=== PATIENT | male | born 1945 | race African-American/Black ===

== ENCOUNTER 2016-12-15 14:11 | Emergency (ER) | payer OTHER ==
[2016-12-15 14:59] LABS: BASOPHIL 0.1 % (0-2); EOSINOPHIL 0.1 % (0-7); HCT 36.9 % (42.0-52.0); HGB 11.6 g/dl (13.2-18.0); LYMPHOCYTE 1.5 % (15-48); MCH 28.9 pg (25.0-31.0); MCHC 31.4 g/dL (32.0-36.0); MONOCYTE 2.4 % (0-12); MPV 9.8 fL (6.0-9.5); NEUTROPHIL 95.9 % (41-80); PLT 324 K/uL (150-400); RBC 4.01 M/uL (4.70-6.00); RDW 14.9 % (11.5-14.0); WBC 19.3 K/uL (4.0-10.5)
[2016-12-15 15:00] LABS: INR 1.01 (0.9-1.2); PROTHROMBIN TIME 12.9 SECONDS (11.7-14.0)
[2016-12-15 15:04] LABS: CREATININE 2.1 mg/dL (0.7-1.2); POTASSIUM 4.6 mmol/L (3.5-5.1)
[2016-12-15 15:44] LABS: AMPHETAMINES NEGATIVE (NEGATIVE); BARBITURATES NEGATIVE (NEGATIVE); BENZODIAZEPINES NEGATIVE (NEGATIVE); COCAINE NEGATIVE (NEGATIVE); MARIJUANA (THC) POSITIVE (NEGATIVE); METHADONE NEGATIVE (NEGATIVE); TRICYCLIC ANTIDEPRESSANT NEGATIVE (NEGATIVE)
== END 2016-12-15 18:52 | disposition home or self-care (01) ==
LOC: FER 14:11
PROVIDERS: Emergency Medicine
DX: I20.8 Other forms of angina pectoris (principal); I11.9 Hypertensive heart disease without heart failure; I25.2 Old myocardial infarction; J44.9 Chronic obstructive pulmonary disease, unspecified; Z87.891 Personal history of nicotine dependence; Z99.81 Dependence on supplemental oxygen
CPT/HCPCS: 36415; 71020; 80048; 80305; 84484; 85025; 85610; 93005

== ENCOUNTER 2020-07-29 12:59 | Inpatient (IN) | payer MEDICARE, OTHER ==
[~2020-07-29 12:59] MED LIST: ADALAT CC90 MG PO; ASPIRIN EC81 MG PO; BUMEX1 MG PO; COREG25 MG PO; IMDUR 30MG TABL30 MG PO; ISOSORBIDE MONO60 MG PO; LIPITOR80 MG PO; NEURONTIN300 M1 PO; NEURONTIN300 MG PO; NITROQUIK SL0.4 MG SL; PROTONIX 40MG T40 MG PO; ROCALTROL 0.0.25 MCG PO; SENNA LAX8.6 MG PO; SPIRIVA RESPIMAT4 G1 INH; SYMBICORT 80-10.2 GM INH; VENTOLIN HFA IN18 GM INH
[2020-07-29 14:23] LABS: INR 1.57 (0.9-1.2); PROTHROMBIN TIME 17.8 SECONDS (11.4-13.6)
[2020-07-29 14:31] LABS: ALBUMIN 2.9 g/dL (3.4-5.0); BILIRUBIN - TOTAL 0.2 mg/dL (0.2-1.0); BUN/CREAT RATIO (CALC) 6.6 RATIO; CREATININE 6.69 mg/dL (0.67-1.17); GLOBULIN (CALCULATION) 4.1 g/dL; POTASSIUM 3.9 mmol/L (3.5-5.1)
[2020-07-29 14:49] LABS: BASOPHIL 0.3 % (0-2); EOSINOPHIL 0.7 % (0-7); HCT 28.2 % (42.0-52.0); HGB 8.2 g/dl (13.2-18.0); LYMPHOCYTE 2.3 % (15-48); MCH 30.3 pg (25.0-31.0); MCHC 29.1 g/dL (32.0-36.0); MCV 104.1 fL (78.0-100.0); MPV 11.7 fL (6.0-9.5); NEUTROPHIL 93.1 % (41-80); NRBC 0; PLT 208 K/uL (150-400); RBC 2.71 M/uL (4.70-6.00); RDW 14.9 % (11.5-14.0); WBC 17.4 K/uL (4.0-10.5)
[2020-07-29] MEDS ORDERED: VITAMIN B-6100 MG PO (22:38)
[2020-07-29] MEDS ORDERED: ALLOPURINOL100 MG PO (22:38)
[2020-07-29] MEDS ORDERED: ISOSORBIDE MONO60 MG PO (22:39)
[2020-07-29] MEDS ORDERED: PLAVIX75 MG PO (22:40)
[2020-07-29] MEDS ORDERED: SPIRIVA RESPIMAT4 G1 INH (22:40)
[2020-07-29] MEDS ORDERED: CETIRIZINE HCL5 MG PO (22:41)
[2020-07-29] MEDS ORDERED: PEPTO-BISM262 MG/15 PO (22:41)
[2020-07-29] MEDS ORDERED: PULMICORT0.5 MG/2 M INH (22:42)
[2020-07-29] MEDS ORDERED: ELIQUIS5 MG PO ×2 (22:43)
[2020-07-29] MEDS ORDERED: LIPITOR40 MG PO (22:43)
[2020-07-29] MEDS ORDERED: VENTOLIN HFA IN18 GM INH ×2 (22:44)
[2020-07-29] MEDS ORDERED: DESYREL50 MG PO (22:45)
[2020-07-29] MEDS ORDERED: HYDRALAZINE25 MG PO (22:45)
[2020-07-29] MEDS ORDERED: SENOKOT8.6 MG PO (22:46)
[2020-07-29] MEDS ORDERED: PHOSLO667 MG PO (22:46)
[2020-07-30 07:06] LABS: BASOPHIL 0.6 % (0-2); EOSINOPHIL 3.1 % (0-7); HCT 27.4 % (42.0-52.0); HGB 8.5 g/dl (13.2-18.0); LYMPHOCYTE 6.5 % (15-48); MCH 30.9 pg (25.0-31.0); MCV 99.6 fL (78.0-100.0); MPV 10.3 fL (6.0-9.5); NEUTROPHIL 83.4 % (41-80); NRBC 0; PLT 269 K/uL (150-400); RBC 2.75 M/uL (4.70-6.00); RDW 14.8 % (11.5-14.0); WBC 11.2 K/uL (4.0-10.5)
[2020-07-30 07:35] LABS: ALBUMIN 2.8 g/dL (3.4-5.0); BILIRUBIN - TOTAL 0.3 mg/dL (0.2-1.0); BUN/CREAT RATIO (CALC) 6.8 RATIO; CREATININE 6.65 mg/dL (0.67-1.17); GLOBULIN (CALCULATION) 4.3 g/dL; TOTAL PROTEIN 7.1 g/dL (6.4-8.2)
[2020-07-31] MEDS ORDERED: REQUIP0.25 M1 PO (03:51)
[2020-07-31] MEDS ORDERED: LASIX20 MG PO (03:51)
[2020-07-31 07:49] LABS: BASOPHIL 0.8 % (0-2); EOSINOPHIL 5.3 % (0-7); HCT 26.4 % (42.0-52.0); LYMPHOCYTE 13.2 % (15-48); MCH 30.4 pg (25.0-31.0); MCHC 30.3 g/dL (32.0-36.0); MCV 100.4 fL (78.0-100.0); MONOCYTE 8.5 % (0-12); NEUTROPHIL 71.9 % (41-80); NRBC 0; PLT 269 K/uL (150-400); RBC 2.63 M/uL (4.70-6.00); RDW 14.8 % (11.5-14.0); WBC 7.9 K/uL (4.0-10.5)
[2020-07-31 08:06] LABS: BUN/CREAT RATIO (CALC) 6.7 RATIO; CREATININE 6.98 mg/dL (0.67-1.17); POTASSIUM 4.4 mmol/L (3.5-5.1)
--- NOTE | 2020-07-31 15:50 | NUR ---
CALLED PHARMACY ABOUT ORDER FOR DETROL [address] PO [address] THORNTON, PHARMACY CHANGED TO TROSPIUM CHLORIDE 20MG PO QD.
[2020-08-01 06:41] LABS: BASOPHIL 0.7 % (0-2); EOSINOPHIL 7.3 % (0-7); HCT 26.3 % (42.0-52.0); HGB 7.9 g/dl (13.2-18.0); LYMPHOCYTE 12.3 % (15-48); MONOCYTE 10.4 % (0-12); MPV 10.3 fL (6.0-9.5); NRBC 0; PLT 237 K/uL (150-400); RBC 2.63 M/uL (4.70-6.00); RDW 14.5 % (11.5-14.0); WBC 7.1 K/uL (4.0-10.5)
[2020-08-01 07:00] LABS: CREATININE 4.05 mg/dL (0.67-1.17); POTASSIUM 3.9 mmol/L (3.5-5.1)
[2020-08-01] MEDS ORDERED: KEFLEX250 MG PO (09:07)
== END 2020-08-01 11:00 | disposition home or self-care (01) | DRG 280 ==
LOC: FER 12:59 → FMS 17:44
PROVIDERS: Emergency Medicine; Nurse Practitioner; Nurse Practitioner Family; ADMIT Internal Medicine
PROC: 5A1D70Z Performance of Urinary Filtration, Intermittent, Less than 6 Hours Per Day (ICD-10-PCS; principal; 2020-07-31)
DX: I13.2 Hypertensive heart and chronic kidney disease with heart failure and with stage 5 chronic kidney disease, or end stage renal disease (principal); N18.6 End stage renal disease; I21.4 Non-ST elevation (NSTEMI) myocardial infarction; J18.9 Pneumonia, unspecified organism; I50.43 Acute on chronic combined systolic (congestive) and diastolic (congestive) heart failure; J44.0 Chronic obstructive pulmonary disease with (acute) lower respiratory infection; Z99.2 Dependence on renal dialysis; R79.89 Other specified abnormal findings of blood chemistry; I25.10 Atherosclerotic heart disease of native coronary artery without angina pectoris; Z95.5 Presence of coronary angioplasty implant and graft; I25.2 Old myocardial infarction; D64.9 Anemia, unspecified; G25.81 Restless legs syndrome; Z20.828 Contact with and (suspected) exposure to other viral communicable diseases; E78.5 Hyperlipidemia, unspecified; M17.11 Unilateral primary osteoarthritis, right knee; M10.9 Gout, unspecified; R07.89 Other chest pain; N39.41 Urge incontinence; E83.39 Other disorders of phosphorus metabolism; Z86.711 Personal history of pulmonary embolism; Z99.81 Dependence on supplemental oxygen; Z79.01 Long term (current) use of anticoagulants; Z87.891 Personal history of nicotine dependence; Z79.899 Other long term (current) drug therapy
CPT/HCPCS: 36415; 71045; 71250; 80048; 80053; 80061; 83605; 83880; 84145; 84484; 85025; 85610; 85730; 93005; 94010; 94640; 94667; 94668; J0456; J0696; J7030; J7050; U0002

== ENCOUNTER 2020-08-12 11:27 | Emergency (ER) | payer MEDICARE, OTHER ==
[~2020-08-12 11:27] MED LIST changes: +ALLOPURINOL100 MG PO; +CETIRIZINE HCL5 MG PO; +DESYREL50 MG PO; +ELIQUIS5 MG PO; +HYDRALAZINE25 MG PO; +KEFLEX250 MG PO; +LASIX20 MG PO; +LIPITOR40 MG PO; +PEPTO-BISM262 MG/15 PO; +PHOSLO667 MG PO; +PLAVIX75 MG PO; +PULMICORT0.5 MG/2 M INH; +REQUIP0.25 M1 PO; +SENOKOT8.6 MG PO; +VITAMIN B-6100 MG PO
[2020-08-12 13:52] LABS: BASOPHIL 0.4 % (0-2); EOSINOPHIL 3.2 % (0-7); HCT 29.6 % (42.0-52.0); HGB 8.9 g/dl (13.2-18.0); LYMPHOCYTE 14.1 % (15-48); MCH 30.2 pg (25.0-31.0); MCHC 30.1 g/dL (32.0-36.0); MCV 100.3 fL (78.0-100.0); MONOCYTE 12.4 % (0-12); MPV 11.1 fL (6.0-9.5); NEUTROPHIL 69.7 % (41-80); NRBC 0; PLT 157 K/uL (150-400); RBC 2.95 M/uL (4.70-6.00); RDW 14.7 % (11.5-14.0); WBC 5.2 K/uL (4.0-10.5)
[2020-08-12 14:44] LABS: ALBUMIN 3.1 g/dL (3.4-5.0); BILIRUBIN - TOTAL 0.2 mg/dL (0.2-1.0); BUN/CREAT RATIO (CALC) 4.6 RATIO; CREATININE 6.09 mg/dL (0.67-1.17); GLOBULIN (CALCULATION) 3.9 g/dL; POTASSIUM 4.1 mmol/L (3.5-5.1)
== END 2020-08-12 19:56 | disposition home or self-care (01) ==
LOC: FER 11:27
PROVIDERS: Emergency Medicine
DX: U07.1 COVID-19 (principal); N18.6 End stage renal disease; J44.9 Chronic obstructive pulmonary disease, unspecified; Z99.2 Dependence on renal dialysis
CPT/HCPCS: 36415; 71045; 80053; 85025; 94664; J7050; M0239; U0002

== ENCOUNTER 2020-09-16 16:07 | Emergency (ER) | payer MEDICARE, OTHER ==
[2020-09-16 18:14] LABS: BASOPHIL 0.6 % (0-2); EOSINOPHIL 5.1 % (0-7); HGB 11.2 g/dl (13.2-18.0); LYMPHOCYTE 9.2 % (15-48); MCH 30.2 pg (25.0-31.0); MCHC 31.1 g/dL (32.0-36.0); MONOCYTE 9.4 % (0-12); MPV 11.1 fL (6.0-9.5); NEUTROPHIL 75.5 % (41-80); NRBC 0; PLT 151 K/uL (150-400); RBC 3.71 M/uL (4.70-6.00); RDW 14.8 % (11.5-14.0); WBC 8.7 K/uL (4.0-10.5)
[2020-09-16 18:28] LABS: BUN/CREAT RATIO (CALC) 3.9 RATIO; CREATININE 3.08 mg/dL (0.67-1.17); POTASSIUM 3.7 mmol/L (3.5-5.1)
[2020-09-16] MEDS ORDERED: PREDNISONE 20MG20 MG PO (19:41)
== END 2020-09-16 20:15 | disposition home or self-care (01) ==
LOC: FER 16:07
PROVIDERS: Nurse Practitioner Family
DX: J44.1 Chronic obstructive pulmonary disease with (acute) exacerbation (principal); I10 Essential (primary) hypertension; Z95.5 Presence of coronary angioplasty implant and graft; Z99.2 Dependence on renal dialysis
CPT/HCPCS: 36415; 36600; 71045; 80048; 82803; 84484; 85025; J1100

== ENCOUNTER 2020-11-12 14:08 | Day surgery (SDCO) | payer MEDICARE, OTHER ==
[~2020-11-12 14:08] MED LIST changes: +PREDNISONE 20MG20 MG PO
[2020-11-12 15:32] LABS: BASOPHIL 0.6 % (0-2); EOSINOPHIL 3.5 % (0-7); HCT 33.9 % (42.0-52.0); HGB 10.7 g/dl (13.2-18.0); LYMPHOCYTE 8.8 % (15-48); MCH 30.5 pg (25.0-31.0); MCHC 31.6 g/dL (32.0-36.0); MCV 96.6 fL (78.0-100.0); MONOCYTE 6.5 % (0-12); MPV 11.5 fL (6.0-9.5); NEUTROPHIL 80.3 % (41-80); NRBC 0; PLT 164 K/uL (150-400); RBC 3.51 M/uL (4.70-6.00); RDW 16.3 % (11.5-14.0); WBC 9.4 K/uL (4.0-10.5)
[2020-11-12 15:58] LABS: BUN/CREAT RATIO (CALC) 5.4 RATIO; CREATININE 4.47 mg/dL (0.67-1.17); POTASSIUM 3.8 mmol/L (3.5-5.1)
[2020-11-12 17:07] LABS: BILIRUBIN NEGATIVE (NEGATIVE); BLOOD NEGATIVE Ery/uL (NEGATIVE); CLARITY CLEAR (CLEAR); COLOR YELLOW (YELLOW); GLUCOSE (U) NORMAL (NORMAL); LEUKOCYTES NEGATIVE Leu/uL (NEGATIVE); NITRITE NEGATIVE (NEGATIVE); PROTEIN 2+ mg/dL (NEGATIVE); SPECIFIC GRAVITY 1.025 (1.001-1.030); UROBILINOGEN 0.2 mg/dL (0.2-1.0); pH 5.5 (5.0-9.0)
[2020-11-12 17:16] LABS: AMORPHOUS URATES CRYSTALS MODERATE; URINARY WBC RARE
[2020-11-12 18:09] LABS: PRO-BNP 5046 pg/mL (<450)
--- NOTE | 2020-11-12 20:17 | NUR ---
1941 PT RECEIVED FROM THE ED VIA STRETCHER. PT ORIENTED TO ROOM AND CALL LIGHT. INSTRUCTED PT TO CALL FOR ASSISTANCE BEFROE GETTING OOB.
[2020-11-12] MEDS ORDERED: VENTOLIN HFA IN18 GM INH (20:36)
[2020-11-12] MEDS ORDERED: ALLOPURINOL100 MG PO (20:36)
[2020-11-12] MEDS ORDERED: LIPITOR40 MG PO (20:37)
[2020-11-12] MEDS ORDERED: ELIQUIS5 MG PO (20:37)
[2020-11-12] MEDS ORDERED: PULMICORT FLE180 MCG INH (20:38)
[2020-11-12] MEDS ORDERED: SYMBICORT 80-10.2 GM INH (20:39)
[2020-11-12] MEDS ORDERED: COREG25 MG PO (20:40)
[2020-11-12] MEDS ORDERED: SPIRIVA18 MCG INH (20:40)
[2020-11-12] MEDS ORDERED: LASIX20 MG PO (20:44)
[2020-11-12] MEDS ORDERED: CETIRIZINE HCL5 MG PO (20:44)
[2020-11-12] MEDS ORDERED: NEURONTIN100 MG PO (20:45)
[2020-11-12] MEDS ORDERED: HYDRALAZINE25 MG PO (20:46)
[2020-11-12] MEDS ORDERED: ISOSORBIDE DINI30 MG PO (20:49)
[2020-11-12] MEDS ORDERED: PROTONIX 40MG T40 MG PO (20:50)
[2020-11-12] MEDS ORDERED: REQUIP0.25 MG PO (20:50)
[2020-11-12] MEDS ORDERED: TRAZODONE 50MG50 MG PO (20:51)
[2020-11-13 07:25] LABS: BASOPHIL 0.7 % (0-2); HCT 32.3 % (42.0-52.0); HGB 10.3 g/dl (13.2-18.0); LYMPHOCYTE 10.6 % (15-48); MCH 30.7 pg (25.0-31.0); MCHC 31.9 g/dL (32.0-36.0); MCV 96.4 fL (78.0-100.0); MONOCYTE 8.4 % (0-12); MPV 10.6 fL (6.0-9.5); NRBC 0; PLT 159 K/uL (150-400); RBC 3.35 M/uL (4.70-6.00); RDW 16.2 % (11.5-14.0); WBC 8.7 K/uL (4.0-10.5)
[2020-11-13 07:32] LABS: INR 1.61 (0.9-1.2); PROTHROMBIN TIME 18.2 SECONDS (11.4-13.6); PTT 33.7 SECONDS (22.2-34.7)
[2020-11-13 07:56] LABS: BUN/CREAT RATIO (CALC) 5.1 RATIO; CREATININE 5.08 mg/dL (0.67-1.17); POTASSIUM 3.7 mmol/L (3.5-5.1)
[2020-11-13] MEDS ORDERED: COREG12.5 MG PO (14:15)
[2020-11-13] MEDS ORDERED: LASIX20 MG PO (14:23)
[2020-11-13] MEDS ORDERED: HYDRALAZINE25 MG PO (14:26)
[2020-11-13] MEDS ORDERED: PLAVIX75 MG PO (14:31)
[2020-11-13] MEDS ORDERED: COLACE100 MG PO (14:32)
[2020-11-13] MEDS ORDERED: COZAAR100 MG PO (14:35)
--- NOTE | 2020-11-13 15:38 | NUR ---
MET WITH PT. HE ADVISED THAT HE RESIDES WITH HIS . HE USES HOME O2 15/02. HE STATES THAT HE HAS DIAYLSIS AT [facility] IN [place]. HE HAS A ROLLNG WALKER AND SHOWER SEAT. HE STATES THAT HIS WILL PICK HIM UP AND BRING HIS O2 TRAVEL TANK. [facility]. PLEASE ADVISE OF ANY D/C NEEDS.
--- NOTE | 2020-11-13 17:47 | NUR ---
REMOVED SEVEN SUTURES FROM LEFT UPPER INNER ARM. SUTURES WERE VERY TIGHT AND CLOSE TO SKIN PATIENT HAD NO COMPLAINTS AND NO DISTRESS AFTER ALL SEVEN WERE REMOVED. EDUCATED PATIENT ON SIGNS OF INFECTION IN THE UPPER ARM FROM AFTER SUTURE REMOVAL. INCLUDED, FEVER, REDNESS, SITE IS HOT TO TOUCH, AND ANY DRAINAGE THE BECOME PRESENT AND TO REPORT THAT TO HIS NURSE. PT VERBALIZES UNDERSTANDING AND TEACHES BACK SIGNS OF INFECTION. MATTHEW BROWN RN WAS NOTIFED
[2020-11-14 05:54] LABS: BASOPHIL 0.4 % (0-2); EOSINOPHIL 3.5 % (0-7); HCT 35.1 % (42.0-52.0); HGB 11.3 g/dl (13.2-18.0); LYMPHOCYTE 5.1 % (15-48); MCH 30.5 pg (25.0-31.0); MCHC 32.2 g/dL (32.0-36.0); MCV 94.9 fL (78.0-100.0); MONOCYTE 7.2 % (0-12); MPV 10.6 fL (6.0-9.5); NEUTROPHIL 83.4 % (41-80); NRBC 0; PLT 166 K/uL (150-400); RDW 16.2 % (11.5-14.0); WBC 12.7 K/uL (4.0-10.5)
[2020-11-14 06:10] LABS: IRON % SATURATION 13.4 %SAT (20-50)
[2020-11-14 06:47] LABS: BUN/CREAT RATIO (CALC) 3.9 RATIO; CREATININE 3.1 mg/dL (0.67-1.17); POTASSIUM 3.8 mmol/L (3.5-5.1)
--- NOTE | 2020-11-14 10:17 | NUR ---
DR. VILLA WANTS PT TO HAVE HH. SPOKE WITH PT REGARDING HH SERVICES. HE STATED THAT [facility] AND WOULD [facility]ATH[facility] WAIT FOR [facility] TO [facility]. GAVE PT. MY NUMBER IS HE CHANGES HIS MIND. ADVISED DR. VILLA OF PT DECISION WELL NURSE MATTHEW.
== END 2020-11-14 10:30 | disposition home health service (06) ==
LOC: FER 14:08 → FMS 18:27
PROVIDERS: Nurse Practitioner; Nurse Practitioner Family; ADMIT Allergy & Immunology Allergy
DX: I13.2 Hypertensive heart and chronic kidney disease with heart failure and with stage 5 chronic kidney disease, or end stage renal disease (principal); N18.6 End stage renal disease; I50.42 Chronic combined systolic (congestive) and diastolic (congestive) heart failure; J44.9 Chronic obstructive pulmonary disease, unspecified; G89.29 Other chronic pain; R10.9 Unspecified abdominal pain; I25.10 Atherosclerotic heart disease of native coronary artery without angina pectoris; D50.9 Iron deficiency anemia, unspecified; I25.2 Old myocardial infarction; G25.81 Restless legs syndrome; E78.5 Hyperlipidemia, unspecified; M10.9 Gout, unspecified; I73.9 Peripheral vascular disease, unspecified; M17.11 Unilateral primary osteoarthritis, right knee; Z86.711 Personal history of pulmonary embolism; Z86.73 Personal history of transient ischemic attack (TIA), and cerebral infarction without residual deficits; Z87.891 Personal history of nicotine dependence; Z79.01 Long term (current) use of anticoagulants; Z79.899 Other long term (current) drug therapy; Z95.5 Presence of coronary angioplasty implant and graft; Z99.2 Dependence on renal dialysis; Z99.81 Dependence on supplemental oxygen; Z20.822 Contact with and (suspected) exposure to COVID-19
CPT/HCPCS: 36415; 36600; 71045; 80048; 81001; 82728; 82803; 83540; 83550; 83880; 84443; 84484; 85025; 85610; 85730; 93005; 94640; 97116; 97162; 97530-GP; G0257; G0378; J1642; J7030; Q9967; U0002

== ENCOUNTER 2020-12-28 10:43 | Emergency (ER) | payer OTHER ==
[~2020-12-28 10:43] MED LIST changes: +COLACE100 MG PO; +COREG12.5 MG PO; +COZAAR100 MG PO; +ISOSORBIDE DINI30 MG PO; +NEURONTIN100 MG PO; +PULMICORT FLE180 MCG INH; +REQUIP0.25 MG PO; +SPIRIVA18 MCG INH; +TRAZODONE 50MG50 MG PO
[2020-12-28 12:52] LABS: BASOPHIL 0.2 % (0-2); EOSINOPHIL 1.1 % (0-7); HCT 32.1 % (42.0-52.0); HGB 9.9 g/dl (13.2-18.0); LYMPHOCYTE 3.6 % (15-48); MCH 30.6 pg (25.0-31.0); MCHC 30.8 g/dL (32.0-36.0); MCV 99.1 fL (78.0-100.0); MONOCYTE 5.3 % (0-12); MPV 10.9 fL (6.0-9.5); NEUTROPHIL 89.3 % (41-80); NRBC 0; PLT 152 K/uL (150-400); RBC 3.24 M/uL (4.70-6.00); RDW 16.5 % (11.5-14.0); WBC 19.2 K/uL (4.0-10.5)
[2020-12-28 13:09] LABS: ALBUMIN 3.2 g/dL (3.4-5.0); BILIRUBIN - TOTAL 0.3 mg/dL (0.2-1.0); BUN/CREAT RATIO (CALC) 6.2 RATIO; CREATININE 4.22 mg/dL (0.67-1.17); GLOBULIN (CALCULATION) 3.8 g/dL; POTASSIUM 3.8 mmol/L (3.5-5.1)
[2020-12-28 14:39] LABS: BILIRUBIN 1+ mg/dL (NEGATIVE); BLOOD 3+ Ery/uL (NEGATIVE); GLUCOSE (U) NORMAL (NORMAL); LEUKOCYTES 2+ Leu/uL (NEGATIVE); NITRITE POSITIVE (NEGATIVE); PROTEIN 3+ mg/dL (NEGATIVE); SPECIFIC GRAVITY 1.025 (1.001-1.030); UROBILINOGEN 0.2 mg/dL (0.2-1.0); pH 5.5 (5.0-9.0)
[2020-12-28 14:40] LABS: CLARITY CLOUDY (CLEAR); COLOR AMBER (YELLOW)
[2020-12-28 14:45] LABS: BACTERIA 3+; URINARY RBC TNTC
[2020-12-28] MEDS ORDERED: CIPRO500 MG PO (15:19)
== END 2020-12-28 17:15 | disposition home or self-care (01) ==
LOC: FER 10:43
PROVIDERS: Emergency Medicine
DX: N30.90 Cystitis, unspecified without hematuria (principal); I25.2 Old myocardial infarction; I12.9 Hypertensive chronic kidney disease with stage 1 through stage 4 chronic kidney disease, or unspecified chronic kidney disease; N18.9 Chronic kidney disease, unspecified; E78.5 Hyperlipidemia, unspecified; J44.9 Chronic obstructive pulmonary disease, unspecified; Z86.711 Personal history of pulmonary embolism; Z99.2 Dependence on renal dialysis; Z87.891 Personal history of nicotine dependence; Z79.899 Other long term (current) drug therapy; Z79.01 Long term (current) use of anticoagulants
CPT/HCPCS: 36415; 80053; 81001; 83605; 85025; 87040; 87077; 87088; 87186; J0696; J2270; J2405

== ENCOUNTER 2021-01-22 10:03 | Emergency (ER) | payer MEDICARE, OTHER ==
[~2021-01-22 10:03] MED LIST changes: +CIPRO500 MG PO
[2021-01-22 11:20] LABS: BASOPHIL 0.4 % (0-2); HCT 34.5 % (42.0-52.0); HGB 10.3 g/dl (13.2-18.0); LYMPHOCYTE 7.6 % (15-48); MCHC 29.9 g/dL (32.0-36.0); MCV 103.9 fL (78.0-100.0); MONOCYTE 8.5 % (0-12); MPV 11.4 fL (6.0-9.5); NEUTROPHIL 80.2 % (41-80); NRBC 0; PLT 146 K/uL (150-400); RBC 3.32 M/uL (4.70-6.00); RDW 15.9 % (11.5-14.0); WBC 9.8 K/uL (4.0-10.5)
[2021-01-22 17:06] LABS: INR 1.37 (0.9-1.2)
[2021-01-22 17:08] LABS: D-DIMER 1.25 ug/mLFEU (0.00-0.41)
[2021-01-22 17:16] LABS: ALBUMIN 3.2 g/dL (3.4-5.0); BILIRUBIN - TOTAL 0.4 mg/dL (0.2-1.0); BUN/CREAT RATIO (CALC) 6.8 RATIO; CREATININE 4.86 mg/dL (0.67-1.17); GLOBULIN (CALCULATION) 3.8 g/dL; POTASSIUM 4.3 mmol/L (3.5-5.1)
[2021-01-22 17:26] LABS: PRO-BNP > 35000 pg/mL (<450)
== END 2021-01-22 20:35 | disposition other institution (70) ==
LOC: FER 10:03
PROVIDERS: Emergency Medicine
DX: R06.02 Shortness of breath (principal); R07.89 Other chest pain; R79.89 Other specified abnormal findings of blood chemistry; I11.0 Hypertensive heart disease with heart failure; I50.9 Heart failure, unspecified; Z99.2 Dependence on renal dialysis
CPT/HCPCS: 36415; 71045; 80053; 83880; 84484; 85025; 85379; 85610; 93005; 94640; 94664

== ENCOUNTER 2021-04-28 10:51 | Emergency (ER) | payer MEDICARE ==
[2021-04-28 11:38] LABS: BASOPHIL 0.3 % (0-2); EOSINOPHIL 3.3 % (0-7); HCT 31.5 % (42.0-52.0); HGB 9.8 g/dl (13.2-18.0); LYMPHOCYTE 7.2 % (15-48); MCHC 31.1 g/dL (32.0-36.0); MCV 99.7 fL (78.0-100.0); MONOCYTE 6.1 % (0-12); MPV 10.6 fL (6.0-9.5); NEUTROPHIL 82.6 % (41-80); NRBC 0.2; PLT 174 K/uL (150-400); RBC 3.16 M/uL (4.70-6.00); RDW 14.9 % (11.5-14.0); WBC 9.1 K/uL (4.0-10.5)
[2021-04-28 11:42] LABS: INR 1.31 (0.9-1.2); PROTHROMBIN TIME 15.6 SECONDS (11.8-13.4); PTT 39.2 SECONDS (24.4-34.7)
[2021-04-28 11:56] LABS: CKMB 1.3 ng/mL (0.0-3.6)
[2021-04-28 11:57] LABS: ALBUMIN 3.5 g/dL (3.4-5.0); BILIRUBIN - TOTAL 0.2 mg/dL (0.2-1.0); CREATININE 9.87 mg/dL (0.67-1.17); GLOBULIN (CALCULATION) 3.4 g/dL; POTASSIUM 6.3 mmol/L (3.5-5.1); TOTAL PROTEIN 6.9 g/dL (6.4-8.2)
== END 2021-04-28 13:50 | disposition other institution (70) ==
LOC: FER 10:51
PROVIDERS: Emergency Medicine
DX: I21.4 Non-ST elevation (NSTEMI) myocardial infarction (principal); E87.5 Hyperkalemia; I12.0 Hypertensive chronic kidney disease with stage 5 chronic kidney disease or end stage renal disease; N18.6 End stage renal disease; I25.10 Atherosclerotic heart disease of native coronary artery without angina pectoris; Z95.5 Presence of coronary angioplasty implant and graft; Z20.822 Contact with and (suspected) exposure to COVID-19
CPT/HCPCS: 36415; 71045; 80053; 82553; 84484; 85025; 85610; 85730; 93005; J1644; U0002